=== PATIENT | male | born 1955 | race Caucasian/White ===

== ENCOUNTER 2016-09-21 08:00 | Day surgery (SDC) | payer BC ==
[~2016-09-21] VITALS: Ht 177.8 cm; Wt 92.5 kg
[~2016-09-21 08:00] MED LIST: AMBIEN10 MG PO; ASPIR-LOW81 MG PO; CEFDINIR300 MG PO; CELEBREX200 MG PO; CHANTIX1 MG PO; DIOVAN160 MG PO; HYDRALAZINE HCL25 MG PO; JENTADUETO 2.51 EACH PO; NORCO 5/3251 TABLET PO; NORVASC10 MG PO; PRILOSEC OTC20 MG PO; SIMVASTATIN40 MG PO; TRULICITY0.75 MG/0. SC; VENTOLIN HFA18 GM IH; XANAX0.5 MG PO
[2016-09-21 08:21] VITALS: BP 117/76
[2016-09-21 09:14] LABS: HEMATOCRIT 41.4 % (38.0-50.0); MCH 31.4 PG (29.0-34.0); MCHC 34.5 G/DL (30.0-36.0); MEAN PLAT.VOLUME 10.1 uM^3 (9.0-12.4); PLATELET COUNT 216 K/uL (156-360); RBC DIS.WIDTH-CV 12.6 % (11.8-14.6); RBC DIS.WIDTH-SD 41.5 % (39-53); RED BLOOD COUNT 4.55 M/uL (4.00-5.50); WHITE BLOOD COUNT 5.5 K/uL (4.1-10.2)
[2016-09-21 09:40] LABS: ANION GAP 7 MEQ/L (2-14); CHLORIDE 105 MEQ/L (99-109); GFR ESTIMATE (CALCULATED) > 59 mL/min/; GLUCOSE 99 mg/dL (70-99); POTASSIUM 4.8 MEQ/L (3.7-5.4); SAMPLE HEMOLYSIS CHECK 0; SAMPLE ICTERIC CHECK 0; SAMPLE LIPEMIA CHECK 0; SODIUM 139 MEQ/L (136-147); UREA NITROGEN (BUN) 23 mg/dL (9-23)
[2016-09-21 14:30] VITALS: BP 134/74
[2016-09-21 14:43] LABS: POINT-OF-CARE METER ID UU13113694
[2016-09-21 15:01] VITALS: BP 142/82
== END 2016-09-21 15:10 | disposition home or self-care (01) ==
LOC: SDC 08:00 → EDSTATUS 15:43 → SDC 15:44
PROVIDERS: Otolaryngology
PROC: 0C5T8ZZ Destruction of Right Vocal Cord, Via Natural or Artificial Opening Endoscopic (ICD-10-PCS; principal; 2016-09-21)
DX: J38.3 Other diseases of vocal cords (principal); K21.9 Gastro-esophageal reflux disease without esophagitis; I10 Essential (primary) hypertension; E11.9 Type 2 diabetes mellitus without complications; J45.909 Unspecified asthma, uncomplicated; Z87.891 Personal history of nicotine dependence
CPT/HCPCS: 80048; 82948; 85027; 88305; 93005; J0690; J2250; J3010; J7050